=== PATIENT | male | born 1985 | race Caucasian/White ===

== ENCOUNTER 2016-12-31 12:50 | Emergency (ER) | payer OTHER ==
[2016-12-31 13:11] VITALS: BP 144/69
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
== END 2016-12-31 13:37 | disposition home or self-care (01) ==
LOC: UCCORT 12:50
DX: S20.219A Contusion of unspecified front wall of thorax, initial encounter (principal); S20.319A Abrasion of unspecified front wall of thorax, initial encounter; W20.8XXA Other cause of strike by thrown, projected or falling object, initial encounter; Y93.H3 Activity, building and construction; Y92.9 Unspecified place or not applicable; S80.02XA Contusion of left knee, initial encounter; W22.8XXA Striking against or struck by other objects, initial encounter; Y93.55 Activity, bike riding; Z88.6 Allergy status to analgesic agent; Z72.0 Tobacco use; F17.220 Nicotine dependence, chewing tobacco, uncomplicated
CPT/HCPCS: 99212; G0463

== ENCOUNTER 2017-09-05 14:39 | Emergency (ER) | payer SELFPAY ==
--- NOTE | 2017-09-05 15:13 | UC ---
Respiratory Complaint HPI - HPI Summary HPI Summary: 32 YEAR OLD MALE PRESENTS WITH COMPLAINS OF PRODUCTIVE COUGH. - History of Current Complaint Stated Complaint: COUGH, HILLARY Time Seen by Provider: 09/05/17 15:13 Hx Obtained From: Patient Onset/Duration: Sudden Onset Severity Initially: Moderate Severity Currently: Moderate Character: Cough: Productive, Sputum Description: - BLACK Associated Signs And Symptoms: Positive: Wheezing - Allergies/Home Medications Allergies/Adverse Reactions: Allergies Allergy/AdvReac Type Severity Reaction Status Date / Time Ibuprofen Allergy Swelling Verified 09/05/17 15:14 Of Face,Lips,& Throat telfa gauze Allergy Blisters Uncoded 09/05/17 15:14 PMH/Surg Hx/FS Hx/Imm Hx Previously Healthy: Yes - Surgical History Surgical History: None - Family History Known Family History: Negative: Diabetes - Social History Alcohol Use: Occasionally Substance Use Type: None Smoking Status (MU): Smoker, Current Status Unknown Type: Smokeless Tobacco Amount Used/How Often: 1 can weekly- occasional cigarette use - Immunization History Most Recent Tetanus Shot: 2013 Review of Systems Constitutional: Negative Skin: Negative Eyes: Negative ENT: Negative Respiratory: Cough Cardiovascular: Negative Gastrointestinal: Negative Genitourinary: Negative Motor: Negative Neurovascular: Negative Musculoskeletal: Negative Neurological: Negative Psychological: Negative All Other Systems Reviewed And Are Negative: Yes Physical Exam Triage Information Reviewed: Yes Vital Signs Reviewed: Yes Eye Exam: Normal ENT Exam: Normal Dental Exam: Normal Neck exam: Normal Neck: Positive: 1 Respiratory: Positive: Rhonchi, Wheezing Cardiovascular Exam: Normal Abdominal Exam: Normal Musculoskeletal Exam: Normal Neurological Exam: Normal Psychological Exam: Normal Skin Exam: Normal Respiratory Course/Dx - Differential Dx/Diagnosis Provider Diagnoses: WHEEZING. BRONCHITIS. PRODUCTIVE COUGH Discharge - Discharge Plan Condition: Stable Disposition: HOME Prescriptions: Albuterol HFA INHALER* [Ventolin HFA Inhaler*] 1 puff INH Q6H PRN #1 mdi PRN Reason: Wheezing Azithromyxin MARY (NF) [Z-Mary (Zithromax) 250 mg tabs #6] 2 tab PO .TODAY, THEN 1 DAILY #6 tab Guaifenesin-Codeine [Cheratussin AC] 1 teasp PO BEDTIME PRN #120 ml MDD 5 ml PRN Reason: Cough Methylprednisolone [Medrol Dosepak 4 MG*] 4 mg PO .SEE MARY INSTRUCTION #21 tab Patient Education Materials: Sinusitis (ED) Referrals: Aries Hoffman DO [Primary Care Provider] -
[2017-09-05 15:14] VITALS: BP 148/69
== END 2017-09-05 15:27 | disposition home or self-care (01) ==
LOC: UCCORT 14:39
DX: J40 Bronchitis, not specified as acute or chronic (principal); R06.2 Wheezing; R05 Cough; Z88.6 Allergy status to analgesic agent; F17.220 Nicotine dependence, chewing tobacco, uncomplicated
CPT/HCPCS: 99212; G0463

== ENCOUNTER 2017-12-22 10:48 | Emergency (ER) | payer BC ==
[2017-12-22 12:44] VITALS: BP 131/78
--- NOTE | 2017-12-22 12:46 | UC ---
General HPI - HPI Summary HPI Summary: pt is c/o being "sweaty" for the past 2 weeks. he notes being sweaty at night but it occurs during the days as well. 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 with this, he has a sense of just not feeling well. pt also notes a sense of being light headed with hot showers on occasion. when i question his fluid intake, he notes he drinks plenty of fluids. pt has a 3rd complaint of daily R sided headaches. he describes this as "sharp pains" in R side of his head. he gets relief with 800mg IB 2x's daily. he denies light/noise sensitivities and changes in vision/ speech. he denies any focal numb/weakness. - History of Current Complaint Chief Complaint: UCHeadache Stated Complaint: CHILLS,FATIGUE,ACHY Time Seen by Provider: 12/22/17 12:16 Hx Obtained From: Patient Pain Intensity: 0 Aggravating: nothing Alleviating: nothing Associated Signs & Symptoms: Positive: Headache - Allergy/Home Medications Allergies/Adverse Reactions: Allergies Allergy/AdvReac Type Severity Reaction Status Date / Time acetaminophen [From Tylenol] Allergy Swelling Verified 12/22/17 11:50 Of Face,Lips,& Throat telfa gauze Allergy Blisters Uncoded 09/05/17 15:14 PMH/Surg Hx/FS Hx/Imm Hx Previously Healthy: Yes - Surgical History Surgical History: None - Family History Known Family History: Positive: Hypertension Negative: Diabetes - Social History Occupation: Employed Full-time Lives: With Family Alcohol Use: Daily Alcohol Amount: 12 PK A WEEK Substance Use Type: None Smoking Status (MU): Former Smoker Type: Smokeless Tobacco Amount Used/How Often: 1 can weekly Have You Smoked in the Last Year: Yes When Did the Patient Quit Smoking/Using Tobacco: 7 MO AGO - Immunization History Most Recent Influenza Vaccination: no Most Recent Tetanus Shot: 2013 Vaccination Up to Date: Yes Review of Systems Constitutional: Other - malaise Skin: Negative Eyes: Negative ENT: Negative Respiratory: Negative Cardiovascular: Negative Gastrointestinal: Negative Genitourinary: Negative Motor: Negative Neurovascular: Negative Musculoskeletal: Negative Neurological: Headache Psychological: Negative All Other Systems Reviewed And Are Negative: Yes Physical Exam Triage Information Reviewed: Yes Appearance: Well-Appearing Vital Signs: Initial Vital Signs Temp 98.2 F 03/12/18 11:53 Pulse 86 12/22/17 11:53 Resp 18 12/22/17 11:53 BP 144/72 12/22/17 11:53 Pulse Ox 100 12/22/17 11:53 Eyes: Positive: Conjunctiva Clear, Other: - PERRL, EOMI ENT: Positive: Pharynx normal, TMs normal. Negative: Nasal congestion, Nasal drainage Neck: Positive: Supple, Nontender, No Lymphadenopathy Respiratory: Positive: Lungs clear, Normal breath sounds Cardiovascular: Positive: RRR, No Murmur, Pulses Normal Abdomen Description: Positive: Nontender, No Organomegaly, Soft Bowel Sounds: Positive: Present Musculoskeletal: Positive: ROM Intact Neurological: Positive: Alert Psychological: Positive: Age Appropriate Behavior Skin Exam: Normal UC Physical Exam Vital Signs On Initial Exam: Initial Vitals Temp Pulse Resp BP Pulse Ox 98.2 F 86 18 144/72 100 12/22/17 11:53 12/22/17 11:53 12/22/17 11:53 12/22/17 11:53 12/22/17 11:53 - Neuro/Tendon Exam Gait: NL - CN 2-12 grossly intact, 5/5 strength x4. 2+ reflexes x4. neg rhomberg and pronator drift. Diagnostics - Radiology No standard instances Xray Interpretation: No Acute Changes Radiology Interpretation Completed By: Radiologist Course/Dx - Course Course Of Treatment: non toxic, neuro exam is reassuring. nothing to suggest temporal arteritis. headache pattern is not typical of migraine. CT brain=NAD. will tx BID nsaid. CXR=no cavitational lesions/NAD. I think TB is unlikley. no significant orthostatic changes. do not feel thyroid storm or pheochromocytoma. the differential for pt's malaise and hyperhidrosis is broad thus need for f/u pcp stressed. pt agrees to f/u. - Differential Dx - Multi-Symptom Provider Diagnoses: Malaise, headaches, hyperhidrosis Discharge - Discharge Plan Condition: Stable Disposition: HOME Prescriptions: Naproxen [Naprosyn] 500 mg PO BID #14 tablet Patient Education Materials: General Headache (ED), Weakness (ED) Referrals: Aries Hoffman DO [Primary Care Provider] - 1 Day Additional Instructions: CALL YOUR DOCTOR TODAY FOR THE NEXT AVAILABLE APPOINTMENT-YOU WILL NEED ADDITIONAL EVALUATION FOR YOUR SYMPTOMS
--- NOTE | 2017-12-22 13:13 | RAD ---
Indication: RIGHT side headaches last year. Morning and night. Severe night sweats. Dizziness. Comparison: No relevant prior exams available on the [facility] PACS for comparison. Technique: Noncontrast CT vertex of skull through foramen magnum. Report: The sulci, ventricles, and basal cisterns are normal for age. Hartman matter white matter differentiation is preserved without evidence for edema. No intra or extra axial hemorrhage, mass, or fluid collection detected. Unremarkable visualized orbital contents. Unremarkable calvarium and skull base. Unremarkable scalp. The visualized paranasal sinuses and mastoid air spaces are clear. IMPRESSION: Negative unenhanced head CT.
--- NOTE | 2017-12-22 13:18 | RAD ---
INDICATION: Malaise and sweats. COMPARISON: Comparison is made with prior study from December 06, 2011. TECHNIQUE: Dual-energy PA and lateral views of the chest were obtained. FINDINGS: The heart is within normal limits in size. Mediastinal and hilar contours appear within normal limits. The lungs are clear. No pleural effusion is present. IMPRESSION: NO EVIDENCE FOR ACTIVE CARDIOPULMONARY DISEASE.
== END 2017-12-22 13:38 | disposition home or self-care (01) ==
LOC: UCCORT 10:48
DX: R53.81 Other malaise (principal); R51 Headache; R61 Generalized hyperhidrosis; Z88.6 Allergy status to analgesic agent; Z91.048 Other nonmedicinal substance allergy status; Z87.891 Personal history of nicotine dependence
CPT/HCPCS: 70450; 71046; 99212; G0463

== ENCOUNTER 2017-12-24 20:02 | Emergency (ER) | payer BC ==
[2017-12-24 20:45] LABS: Urine Appearance Clear; Urine Blood Negative (Negative); Urine Color Amber; Urine Ketones 1+ (Negative); Urine Protein 1+(30 mg/dL) (Negative); Urine Specific Gravity 1.031 (1.010-1.030); Urine Urobilinogen Negative (Negative)
[2017-12-24] MEDS ORDERED: NS 0.9% 1000 ML* 1,000 ML IV ONE (23:06)
[2017-12-24] MEDS ORDERED: Metoclopramide IV* 5 MG/ML 2 ML VIAL IV ONE (23:06)
--- NOTE | 2017-12-25 00:41 | ED ---
Complex/Multi-Sys Presentation - HPI Summary HPI Summary: Sweats w/ chills diffuse joint aches JACOBO x 3 years - has been taking ibuprofen but recently switched to naproxen - no ab pain, bloody or coffee ground emesis or hematochezia/melena weight loss of about 10 lbs in 1 week - reduced appetite N+V yesterday nad today - can keep water down with sips only Had a brain CT and cxr at and labs through PCP - all without acute pathology. Also reports neg influenza, mono and strep throat tests He is being tested for Lyme disease as well - no tx as of yet but h/o this w/ tx and no retesting - PCP aware No known h/o HIV or Hepatitis although admits to a tattoo on Rt arm which was done in someone's home - he believes all supplies were clean cyst on Lt side scalp and Lt groin x years - grows and shrinks at times - nonpainful - has had other cyst which were removed - didn't see the point in removing these but PCP is going to bx them. - History Of Current Complaint Chief Complaint: EDFluSymptoms Time Seen by Provider: 12/24/17 21:33 Hx Obtained From: Patient, Family/[employer] - boss, sister in law - Allergies/Home Medications Allergies/Adverse Reactions: Allergies Allergy/AdvReac Type Severity Reaction Status Date / Time acetaminophen [From Tylenol] Allergy Swelling Verified 12/22/17 11:50 Of Face,Lips,& Throat telfa gauze Allergy Blisters Uncoded 09/05/17 15:14 PMH/Surg Hx/FS Hx/Imm Hx Endocrine/Hematology History: Denies: Hx Diabetes, Hx Thyroid Disease Cardiovascular History: Denies: Hx Hypertension Respiratory History: Reports: Hx Asthma - A CHILD - NO PROBLEMS SINCE AGE 7 GI History: Denies: Hx Ulcer Sensory History: Denies: Hx Contacts or Glasses, Hx Hearing Aid Opthamlomology History: Denies: Hx Contacts or Glasses Infectious Disease History: No Infectious Disease History: Reports: Hx of Known/Suspected MRSA - PT STATES Denies: Hx Hepatitis, Traveled Outside the [place] in Last 30 Days - Family History Known Family History: Positive: Hypertension Negative: Diabetes - Social History Alcohol Use: Daily Alcohol Amount: 12 PK A WEEK Substance Use Type: Reports: None Smoking Status (MU): Former Smoker Type: Smokeless Tobacco Amount Used/How Often: 1 can weekly Have You Smoked in the Last Year: Yes Physical Exam Vital Signs On Initial Exam: Initial Vitals Temp Pulse Resp BP Pulse Ox 98.8 F 108 16 129/97 99 12/24/17 20:04 12/24/17 20:04 12/24/17 20:04 12/24/17 20:04 12/24/17 20:04 Diagnostics - Vital Signs Vital Signs Temp Pulse Resp BP Pulse Ox 12/24/17 21:49 98.5 F 93 18 123/92 100 12/24/17 20:04 98.8 F 108 16 129/97 99 - Laboratory Lab Results: Lab Results 12/24/17 Range/Units 20:13 Urine Color Sandra Urine Appearance Clear Urine pH 6.0 (5-9) Ur Specific [place] 1.031 H (1.010-1.030) Urine Protein 1+(30 mg/dl) A (Negative) Urine Ketones 1+ A (Negative) Urine Blood Negative (Negative) Urine Nitrate Negative (Negative) Urine Bilirubin Negative (Negative) Urine Urobilinogen Negative (Negative) Ur Leukocyte Esterase Negative (Negative) Urine WBC (Auto) Trace(0-5/hpf) (Absent) Urine RBC (Auto) 3+(>10/hpf) A (Absent) Urine Bacteria Absent (Absent) Urine Glucose Negative (Negative) Lab Statement: Any lab studies that have been ordered have been reviewed, and results considered in the medical decision making process. Discharge - Discharge Plan Condition: Improved Disposition: HOME Patient Education Materials: Acute Nausea and Vomiting (ED) Forms: *Work Release Referrals: Aries Hoffman DO [Primary Care Provider] - Additional Instructions: Your Nausea and vomiting appear to have improved with taking Zofran which was prescribed for you earlier today. You may continue to take this to stay hydrated and nourished. Start with a clear diet consisting of water, Gatorade, soup broth, etc. for the first 24 hours. After this time, you may advance to a soft and easily digestible diet such as yogurt, smoothies, cooked eggs, etc. If tolerating this well you may advance your diet from there. It is important that you follow-up with your PCP to review labs ordered by he or she as well as labs ordered here tonight in the emergency department. *If you develop chest pain, shortness of breath, worsening of headache, change in vision, neck stiffness, abdominal pain, intractable vomiting and diarrhea, pain with urination, dizziness, syncope, return to the emergency department.
[2017-12-25 01:21] VITALS: BP 128/68
== END 2017-12-25 01:19 | disposition home or self-care (01) ==
LOC: ED 20:02
DX: R11.2 Nausea with vomiting, unspecified (principal); Z87.891 Personal history of nicotine dependence
CPT/HCPCS: 36415; 80074; 81003; 81015; 86703; 87086; 96374; 99282

== ENCOUNTER 2019-04-29 10:17 | Emergency (ER) | payer OTHER ==
[2019-04-29 10:24] VITALS: BP 124/77
--- NOTE | 2019-04-29 11:12 | UC ---
Laceration HPI - HPI Summary HPI Summary: 33-year-old male who sustained a small laceration to the dorsum of his left hand when he was cutting insulation with a knife. Tetanus is up-to-date. - History Of Current Complaint Chief Complaint: UCLaceration Stated Complaint: HAND LACERATION Time Seen by Provider: 04/29/19 10:59 Hx Obtained From: Patient Laceration Location: Hand Mechanism Of Injury: Sharp Trauma Onset/Duration: Sudden Onset Severity: Mild Pain Intensity: 0 Aggravating Factors: Nothing - Allergies/Home Medications Allergies/Adverse Reactions: Allergies Allergy/AdvReac Type Severity Reaction Status Date / Time ibuprofen Allergy Swelling Verified 04/29/19 10:24 Of Face,Lips,& Throat telfa gauze Allergy Blisters Uncoded 04/29/19 10:24 Home Medications: Home Medications NK [No Home Medications Reported] 04/29/19 [History Confirmed 04/29/19] PMH/Surg Hx/FS Hx/Imm Hx - Additional Past Medical History Additional PMH: Bleeding is controlled upon arrival. Previously Healthy: Yes Other History Of: Negative For: Anticoagulant Therapy - Surgical History Surgical History: None - Family History Known Family History: Positive: Hypertension Negative: Diabetes - Social History Alcohol Use: Weekly Alcohol Amount: 12 PK A WEEK Substance Use Type: None Smoking Status (MU): Former Smoker Type: Smokeless Tobacco Amount Used/How Often: 1 can weekly Have You Smoked in the Last Year: Yes When Did the Patient Quit Smoking/Using Tobacco: 7 MO AGO - Immunization History Most Recent Influenza Vaccination: no Most Recent Tetanus Shot: 2013 Vaccination Up to Date: Yes Review of Systems All Other Systems Reviewed And Are Negative: Yes Skin: Positive: Other - Laceration dorsum left hand. Is Patient Immunocompromised?: No Physical Exam Triage Information Reviewed: Yes Appearance: Well-Appearing, No Pain Distress, Well-Nourished Vital Signs: Initial Vital Signs Temp 98 F 04/29/19 10:22 Pulse 73 04/29/19 10:22 Resp 16 04/29/19 10:22 BP 124/77 04/29/19 10:22 Pulse Ox 100 04/29/19 10:22 Vital Signs Reviewed: Yes Musculoskeletal: Positive: Strength Intact, ROM Intact - Good peripheral pulses , neuro sensation and capillary refill, good finger strength with flexion and extension against resistance, full range of motion. Neurological: Positive: Alert, Muscle Tone Normal Psychological Exam: Normal Skin: Positive: Other - Approximate 1.0 cm laceration to the dorsum of his left hand just between the thumb and index finger. Bleeding is controlled. Laceration Repair - Laceration Repair 1 Description: Linear Laceration Size After Repair: Length (cm) - 1.0 cm Modified For Repair: No Cleansing Completed Via Routine Prep: Yes Irrigation With Pressure Irrigation Device: Yes Closure Material: Skin Adhesive Closure Method: Single Layer Suture Of: Skin - Patient tolerated procedure well. Laceration Course/Dx - Course/Dx Course Of Treatment: 33-year-old male with a 1.0 cm laceration to the dorsum of his left hand. He preferred not to have sutures and because laceration came together quite nicely on its own I applied skin adhesive. Bulky dressing was then applied. He is to watch for signs of infection and follow-up with his primary care provider as needed. - Diagnosis Provider Diagnosis: Laceration of left hand Discharge - Sign-Out/Discharge Documenting (check all that apply): Patient Departure All imaging exams completed and their final reports reviewed: No Studies - Discharge Plan Condition: Fair Disposition: HOME Patient Education Materials: Skin Adhesive Care (ED) Referrals: Aries Hoffman DO [Primary Care Provider] - Additional Instructions: Keep the bulky dressing on for 2 days and then change daily. Watch for signs of infection such as hot, red, tender, red streaks or pus drainage and follow- up with your primary care provider as needed if that occurs. - Billing Disposition and Condition Condition: FAIR Disposition: Home - Attestation Statements Provider Attestation: I was available for consult. This patient was seen by the JAXON. The patient was not presented to, seen by, or examined by me. -Scooby
== END 2019-04-29 11:50 | disposition home or self-care (01) ==
LOC: UCEAST 10:17
DX: S61.412A Laceration without foreign body of left hand, initial encounter (principal); W26.0XXA Contact with knife, initial encounter; Y93.E9 Activity, other interior property and clothing maintenance; Y92.019 Unspecified place in single-family (private) house as the place of occurrence of the external cause; Y99.0 Civilian activity done for income or pay; Z87.891 Personal history of nicotine dependence
CPT/HCPCS: 12001; 99211; G0463